=== PATIENT | female | born 1975 | race Caucasian/White ===

== ENCOUNTER 2024-04-02 09:17 | Outpatient (CLI) | payer BC, SELFPAY | END 2024-04-02 09:18 | disposition home or self-care (01) | LOC: NFLDREF 04-06 18:03 | PROVIDERS: PCP Family Medicine; Referring Provider Family Medicine; Visit Provider Obstetrics & Gynecology | DX: E03.9 Hypothyroidism, unspecified (principal); E78.00 Pure hypercholesterolemia, unspecified | CPT/HCPCS: 80048; 80061; 84443 ==